=== PATIENT | male | born 1965 | race Caucasian/White ===

== ENCOUNTER 2019-04-26 10:04 | Emergency (ER) | payer BC ==
[~2019-04-26] VITALS: Ht 165.1 cm; Wt 83.0 kg
[2019-04-26 10:08] VITALS: Ht 165.1 cm; Wt 83.0 kg
[2019-04-26 11:18] LABS: CALCIUM 9.5 mg/dL (8.5-10.1); CARBON DIOXIDE 28.3 mmol/L (21-32); CHLORIDE SERUM 105 mmol/L (98-107); CREATININE SERUM 1.2 mg/dL (0.7-1.3); GFR1 > 60 mL/min; GLUCOSE SERUM 107 mg/dL (74-106); POTASSIUM SERUM 4.5 mmol/L (3.5-5.1); SODIUM SERUM 143 mmol/L (136-145)
[2019-04-26 11:23] LABS: ALKALINE PHOSPHATASE 92 U/L (46-116); ALT/SGPT 48 U/L (16-63); AST/SGOT 17 U/L (15-37); BILIRUBIN TOTAL 0.6 mg/dL (0.20-1.00); TOTAL PROTEIN, SERUM 7.5 g/dL (6.4-8.2)
[2019-04-26 11:24] LABS: microscopic required? NO
[2019-04-26 11:25] LABS: BASOPHIL % 0.3 % (0-2); PLATELET COUNT 229 x10^3mcL (130-400); RED CELL DISTRIBUTION WIDTH 13.3 % (11.5-14.5)
[2019-04-26 11:31] LABS: UA SPECIFIC GRAVITY 1.025 (1.005-1.035); urine erythrocyte NEGATIVE (NEGATIVE)
[2019-04-26 12:44] VITALS: BP 145/94
== END 2019-04-26 12:44 | disposition home or self-care (01) ==
LOC: ED 10:04
PROVIDERS: Emergency Medicine
DX: K62.5 Hemorrhage of anus and rectum (principal); I10 Essential (primary) hypertension; D72.819 Decreased white blood cell count, unspecified
CPT/HCPCS: 36415